=== PATIENT | male | born 1960 | race Caucasian/White ===

== ENCOUNTER 2016-10-06 19:22 | Emergency (ER) | payer OTHER ==
[~2016-10-06] VITALS: Ht 180.3 cm; Wt 102.7 kg
[2016-10-06 19:33] VITALS: BP 148/86; PULSE 96; RESP 16; TEMP 98.4; O2SAT 99
[2016-10-06] MEDS ORDERED: METF500T PO (20:09)
[2016-10-06] MEDS ORDERED: GLIP10TA6 PO (20:09)
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
[2016-10-06 21:57] VITALS: BP 122/77; PULSE 83; RESP 16; TEMP 98.3; O2SAT 98
[2016-10-06] MEDS ORDERED: TETANUS/DIPHTHERIA TOXOID ADULT 0.5 ML VIAL IM ONE (22:30)
== END 2016-10-06 22:44 | disposition home or self-care (01) ==
LOC: PHED 19:22
DX: S16.1XXA Strain of muscle, fascia and tendon at neck level, initial encounter (principal); S60.011A Contusion of right thumb without damage to nail, initial encounter; S20.211A Contusion of right front wall of thorax, initial encounter; V49.40XA Driver injured in collision with unspecified motor vehicles in traffic accident, initial encounter; Z23 Encounter for immunization
CPT/HCPCS: 71020; 72125; 73140; 90471; 90714